=== PATIENT | female | born 1995 | race Caucasian/White ===

== ENCOUNTER 2020-06-02 13:58 | Emergency (ER) | payer OTHER ==
[~2020-06-02] VITALS: Ht 154.9 cm; Wt 54.4 kg
[2020-06-02 14:05] VITALS: Ht 154.9 cm; Wt 54.4 kg
[2020-06-02 16:27] LABS: BASOPHIL % 0.4 % (0-2); PLATELET COUNT 311 x10^3mcL (130-400); RED CELL DISTRIBUTION WIDTH 11.8 % (11.5-14.5)
[2020-06-02 16:38] LABS: CALCIUM 9.5 mg/dL (8.5-10.1); CARBON DIOXIDE 24.7 mmol/L (21-32); CHLORIDE SERUM 103 mmol/L (98-107); CREATININE SERUM 0.6 mg/dL (0.6-1.0); GFR1 > 60 mL/min; GLUCOSE SERUM 87 mg/dL (74-106); POTASSIUM SERUM 3.7 mmol/L (3.5-5.1); SODIUM SERUM 137 mmol/L (136-145)
[2020-06-02 16:43] LABS: ALBUMIN 4.4 g/dL (3.4-5.0); ALKALINE PHOSPHATASE 75 U/L (46-116); ALT/SGPT 24 U/L (14-59); AST/SGOT 18 U/L (15-37); BILIRUBIN TOTAL 0.4 mg/dL (0.20-1.00); TOTAL PROTEIN, SERUM 8.1 g/dL (6.4-8.2)
[2020-06-02 17:06] LABS: UA SPECIFIC GRAVITY 1.025 (1.005-1.035); microscopic required? YES; urine erythrocyte 1+ (NEGATIVE)
[2020-06-02 18:17] VITALS: BP 118/68
== END 2020-06-02 18:17 | disposition home or self-care (01) ==
LOC: ED 13:58
PROVIDERS: Student in an Organized Health Care Education/Training Program
DX: O26.891 Other specified pregnancy related conditions, first trimester (principal); R10.32 Left lower quadrant pain; Z3A.01 Less than 8 weeks gestation of pregnancy
CPT/HCPCS: Q0092